=== PATIENT | female | born 1965 | race African-American/Black ===

== ENCOUNTER 2020-10-09 20:29 | Emergency (ER) | payer OTHER ==
[~2020-10-09] VITALS: Ht 160 cm; Wt 77.1 kg
[~2020-10-09 20:29] MED LIST: ADDERALL 10 MG10 MG PO; NORVASC10 MG PO; PREMPHASE 0.621 EAC1 PO; TIZANIDINE HCL4 MG PO; VITAMIN D1000 UNI1 PO
[2020-10-09 21:20] LABS: ABSOLUTE NEUTROPHILS 1.1 thou/uL (1.4-8.2); BASOPHILS 1.5 % (0.0-2.0); EOSINOPHILS 13.7 % (0.0-3.0); HEMATOCRIT 28.6 % (37.0-47.0); HEMOGLOBIN 9.2 gm/dL (12.0-15.0); LYMPHOCYTES 44.1 % (24.0-44.0); MCH 31.8 pg (26.0-34.0); MCHC 32.3 g/dL (28.0-37.0); MCV 98.4 fL (80.0-100.0); MONOCYTES 13.8 % (1.0-8.0); PLATELET COUNT 235 thou/uL (150-400); POLYS 26.9 % (36.0-66.0); RBC 2.91 mil/uL (4.20-5.00); RDW 18.7 % (10.5-14.5); WBC 4.2 thou/uL (4.0-11.0)
[2020-10-09] MEDS ORDERED: MAGNESIUM250 M1 PO (21:21)
[2020-10-09] MEDS ORDERED: POTASSIUM20 (21:21)
[2020-10-09] MEDS ORDERED: BACTRIM DS TAB1 EAC1 PO (21:21)
[2020-10-09] MEDS ORDERED: VALTREX 500 MG500 MG (21:21)
[2020-10-09 21:38] LABS: CALCIUM 8.7 mg/dL (8.5-10.1); POTASSIUM 3.9 mmol/L (3.5-5.1)
[2020-10-09 21:45] LABS: ALBUMIN 3.2 g/dL (3.4-5.0); TOTAL BILIRUBIN 0.4 mg/dL (0.2-1.0); TOTAL PROTEIN 6.3 g/dL (6.4-8.2)
[2020-10-09 22:59] VITALS: BP 146/60
--- NOTE | 2020-10-10 07:18 | EKG ---
[address] [address] ELECTROCARDIOGRAM REPORT Name: ZACK LYNCH Room #: REG [facility]ITAL[facility] [id number] Admission: 10/09/20 Attend Phys: Discharge: Date of : 63 Report #: [id number] [facility] ED Test Date: 2020-10-09 Test Time: 21:17:46 Pat Name: ZACK LYNCH Department: Room: Gender: F [facility] Paramedic: SANDRA : 1965 Requested By: Alvaro Tee Order Number: [id number] MD: Gerry Garcia Measurements Intervals Art Rate: 74 P: 41 VA: 137 QRS: -4 QRSD: 91 T: 25 QT: 397 QTc: 441 Interpretive Statements Sinus rhythm Probable left atrial enlargement No previous ECG available for comparison Electronically Signed On 10-10-2020 7:17:53 CDT by Gerry Garcia [email or web address] <ELECTRONICALLY SIGNED> By: Gerry Garcia MD, [facility] 10/10/20716 16 16 Gerry Garcia MD, FACC /EPI
== END 2020-10-09 23:00 | disposition home or self-care (01) ==
LOC: ER 20:29
PROVIDERS: Emergency Medicine
DX: R60.0 Localized edema (principal); I10 Essential (primary) hypertension; Z94.81 Bone marrow transplant status; Z98.890 Other specified postprocedural states; Z79.899 Other long term (current) drug therapy; Z79.2 Long term (current) use of antibiotics; Z88.1 Allergy status to other antibiotic agents; Z88.6 Allergy status to analgesic agent